=== PATIENT | male | born 1955 | race Caucasian/White ===

== ENCOUNTER → 2024-09-23 | Outpatient (CLI) | payer OTHER, MEDICARE ==
[~2024-09-23] MED LIST: METHACHOLINE KIT (6 VIAL.NEB PREMIX) INH ONE
== END ==
LOC: M CARPUL 12:49
PROVIDERS: ATTEND Physician Assistant
DX: R06.02 Shortness of breath (principal)
CPT/HCPCS: 94070; 95070; J7674

== ENCOUNTER → 2025-01-06 | Outpatient (REF) | LOC: M PLAIMG 09:29 | PROVIDERS: ATTEND Internal Medicine | DX: R52 Pain, unspecified (principal) ==